=== PATIENT | male | born 1980 | race African-American/Black ===

== ENCOUNTER 2025-07-07 19:15 | Emergency (ER) | payer OTHER ==
[~2025-07-07] VITALS: Ht 180.3 cm; Wt 84.1 kg
[2025-07-07 22:30] VITALS: BP 119/67; PULSE 88; RESP 16; TEMP 97.3; O2SAT 99
[2025-07-07] MEDS: IBUPROFEN 400 MG TABLET PO ONE (22:54)
[2025-07-07] MEDS: ACETAMINOPHEN 500 MG TABLET PO ONE (22:54)
== END 2025-07-07 23:54 | disposition home or self-care (01) ==
LOC: EMS 19:15
DX: S90.32XA Contusion of left foot, initial encounter (principal); W22.8XXA Striking against or struck by other objects, initial encounter; Y93.89 Activity, other specified; Y92.89 Other specified places as the place of occurrence of the external cause; Y99.8 Other external cause status
CPT/HCPCS: 99283